=== PATIENT | male | born 1965 | race Two or more races ===

== ENCOUNTER 2017-08-31 07:54 | Emergency (ER) | payer SELFPAY, MEDICAID ==
[~2017-08-31] VITALS: Ht 165.1 cm; Wt 70.3 kg
[2017-08-31] MEDS ORDERED: TIVICAY50 MG ORAL (08:05)
[2017-08-31] MEDS ORDERED: descovy (08:05)
[2017-08-31 08:09] VITALS: BP 145/95
--- NOTE | 2017-08-31 08:23 | Emergency Room Report ---
History of Present Illness General Chief Complaint: Medical Clearance Source: Patient Present Illness HPI Patient presents in the custody of [employer]. He presents for medical clearance for booking. He states he has a history of HIV and hepatitis C. He states that he takes medications daily knows his medications and dosages. He also has chronic low back pain that is recently aggravated. He has no other complaints. He denies specific traumatic injury or acute complaints. [employer] reports that they have to have a medical screening exam before booking if the patient is on any chronic medications. Otherwise there is no other request. Allergies: Coded Allergies: No Known Allergies (Unverified , 08/31/17) Patient History Past Medical History: see triage record, HIV, other - HCV Reviewed Nursing Documentation: PMH: Agreed; PSxH: Agreed Nursing Documentation-PMH Past Medical History: No History, Except For Hx Hypertension: Yes Hx Cancer: No - HIV HEP C History Of Psychiatric Problem: Yes - depression Review of Systems All Other Systems: negative except mentioned in HPI Physical Exam Vital Signs Date Time Temp Pulse Resp B/P (MAP) Pulse Ox O2 Delivery O2 Flow Rate FiO2 08/31/17 07:59 98.4 109 20 145/95 99 Room Air 98.4 Sp02 EP Interpretation: reviewed, normal General Appearance: no apparent distress, alert, GCS 15, non-toxic Head: normocephalic, atraumatic Eyes: bilateral eye normal inspection, bilateral eye PERRL ENT: hearing grossly normal, normal pharynx, no angioedema, normal voice Neck: full range of motion, supple/symm/no masses Respiratory: chest non-tender, lungs clear, normal breath sounds, speaking full sentences Cardiovascular #1: regular rate, rhythm, no edema Gastrointestinal: normal bowel sounds, non tender, soft, non-distended, no guarding, no rebound Rectal: deferred Musculoskeletal: back normal, gait/station normal, normal range of motion, non- tender Neurologic: alert, oriented x3, responsive, motor strength/tone normal, sensory intact, speech normal Psychiatric: judgement/insight normal, memory normal, mood/affect normal, no suicidal/homicidal ideation Skin: normal color, no rash, warm/dry, well hydrated Medical Decision Making Diagnostic Impression: Primary Impression: Medical clearance for incarceration ER Course This patient has no acute complaints. He has HIV and hepatitis C. He takes daily medications. He is cleared for booking. He will report immediately to skilled nursing medical to undergo assessment and to obtain medications as per standard protocol. No further emergency department evaluation is required. Last Vital Signs Date Time Temp Pulse Resp B/P (MAP) Pulse Ox O2 Delivery O2 Flow Rate FiO2 08/31/17 08:09 98.4 20 145/95 99 Room Air 98.4 08/31/17 07:59 109 Disposition: D/C TO LAW ENFORCEMENT IN CUST Condition: Stable Referrals: NOT CHOSEN PEMA/,REFERRING (PCP) ED SCRUGGS D.O. August 31, 2017 08:23
[2017-08-31 08:38] VITALS: BP 145/95
== END 2017-08-31 08:38 ==
LOC: EMR 08:19
DX: Z02.89 Encounter for other administrative examinations (principal); B19.20 Unspecified viral hepatitis C without hepatic coma; B20 Human immunodeficiency virus [HIV] disease; I10 Essential (primary) hypertension; F32.9 Major depressive disorder, single episode, unspecified
CPT/HCPCS: 99283